=== PATIENT | male | born 2000 | race Caucasian/White ===

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

== ENCOUNTER 2024-04-24 19:46 | Emergency (ER) | payer SELFPAY ==
[~2024-04-24] VITALS: Ht 167.6 cm; Wt 59.1 kg
[~2024-04-24 19:46] MED LIST changes: +AMOXICILLIN/CLA1 TA1 PO
[2024-04-24 19:56] VITALS: BP 113/63; TEMP 98.5
[2024-04-24 21:10] VITALS: PULSE 78
[2024-04-24] MEDS ORDERED: Home oxyCODONE/Acetaminophen 5/325 MG #4 TAB/PACK PO ONE (21:15)
[2024-04-24] MEDS ORDERED: oxyCODONE/Acetaminophen 5-325 MG TAB PO ONE (21:15)
[2024-04-24] MEDS ORDERED: PERCOCET 325 MG1 TA2 PO (21:18)
== END 2024-04-24 21:10 | disposition home or self-care (01) ==
LOC: COL.ER 19:46
DX: S92.912A Unspecified fracture of left toe(s), initial encounter for closed fracture (principal); S90.112A Contusion of left great toe without damage to nail, initial encounter; V28.49XA Other motorcycle driver injured in noncollision transport accident in traffic accident, initial encounter